=== PATIENT | male | born 1965 | race Caucasian/White ===

== ENCOUNTER 2017-04-25 15:53 | Emergency (ER) | payer OTHER ==
[2017-04-25 15:58] VITALS: BP 122/72; PULSE 59; RESP 16; TEMP 97.7; O2SAT 97
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
== END 2017-04-25 17:20 | disposition home or self-care (01) ==
DX: S52.571A Other intraarticular fracture of lower end of right radius, initial encounter for closed fracture (principal); X58.XXXA Exposure to other specified factors, initial encounter
CPT/HCPCS: A4565